=== PATIENT | male | born 1970 | race Caucasian/White ===

== ENCOUNTER 2018-09-25 19:43 | Emergency (ER) | payer OTHER ==
[2018-09-25] MEDS ORDERED: Aspirin Chewable 81 MG TAB ONE (19:56)
[2018-09-25] MEDS ORDERED: Nitroglycerin 2% Ointment 1 INCH/1 GM Packet ONE (19:56)
[2018-09-25] MEDS ORDERED: Nitroglycerin 0.4 MG TAB 1 EACH ONE (19:57)
[2018-09-25 20:20] LABS: Hemoglobin 14.1 g/dL (14.0-18.0); Mean Corpuscular HGB CONC 33.7 g/dL (32.0-36.0); Mean Corpuscular Hemoglobin 30.7 pg (27.0-31.0); Mean Corpuscular Volume 91.1 fL (78.0-98.0); Mean Platelet Volume 7.2 fL (7.4-10.4); Platelet Count 248 thou/uL (130-400); RBC Distribution Width 11.4 % (11.5-14.5); Red Blood Cell (RBC) Count 4.61 mill/uL (4.70-6.10); White Blood Cell (WBC) Count 8.2 thou/uL (4.8-10.8)
[2018-09-25 20:33] LABS: Eosinophils 6 % (0-10); Lymphocytes 59 % (21-51); MDiff Complete? YES; Monocytes 4 % (0-10); Neutrophil 22 % (42-75); Platelet Morphology Comment Appears Adequate; RBC Morphology Normal; Reactive Lymphocytes 7 % (0-10)
[2018-09-25 20:43] LABS: ALT (SGPT) 20 U/L (8-55); AST (SGOT) 19 U/L (5-34); Albumin 4.2 g/dL (3.5-5.0); Alkaline Phosphatase 80 U/L (40-150); Anion Gap 13 mmol/L (10-20); BUN (Urea Nitrogen) 12 mg/dL (8.9-20.6); Bilirubin, Total 0.4 mg/dL (0.2-1.2); Calc. Creatinine Clearance 0 mL/min (70-130); Calcium 9.2 mg/dL (7.8-10.44); Carbon Dioxide 24 mmol/L (22-29); Chloride 105 mmol/L (98-107); Estimated GFR-MDRD 78; Glucose 130 mg/dL (70-105); Potassium 3.6 mmol/L (3.5-5.1); Protein, Total 7.2 g/dL (6.0-8.3); Sodium 138 mmol/L (136-145)
--- NOTE | 2018-09-25 20:56 | RAD ---
PORTABLE CHEST ONE VIEW: 09/25/18 at 8:05 p.m. HISTORY: Chest pain and dyspnea. FINDINGS: The heart size is normal. The lungs are expanded without focal areas of consolidation, pneumothoraces , or pleural effusions. IMPRESSION: No acute process. POS: [facility]
[2018-09-25] MEDS ORDERED: methylPREDNISolone Sod Succ/PF 125 MG/2 ML VIAL ONE (22:12)
[2018-09-25] MEDS ORDERED: diphenhydrAMINE 50 MG/ML VIAL ONE (22:12)
--- NOTE | 2018-09-29 15:35 | EKG ---
Test Reason : SOB Blood Pressure : / mmHG Vent. Rate : 094 BPM Atrial Rate : 094 BPM P-R Int : 130 ms QRS Dur : 104 ms QT Int : 350 ms P-R-T Axes : 032 027 043 degrees QTc Int : 437 ms Normal sinus rhythm Possible Left atrial enlargement Septal infarct , age undetermined Abnormal ECG Confirmed by TEE BECKFORD ([id number]), research editor JAYE APPIAH ([id number] on 09/29/2018 3:35:20 PM Referred By: ANALY Confirmed By:TEE BECKFORD
== END 2018-09-25 22:58 | disposition home or self-care (01) ==
LOC: EEVIPCON 19:43 → ERS 19:43
DX: T78.40XA Allergy, unspecified, initial encounter (principal); Z87.891 Personal history of nicotine dependence; Z79.899 Other long term (current) drug therapy; Z79.82 Long term (current) use of aspirin
CPT/HCPCS: 36415; 71045; 80053; 83880; 84484; 85025; 93005; 94760; 96374; 96375; J1200; J2930